=== PATIENT | female | born 1960 | race Caucasian/White ===

== ENCOUNTER 2023-01-28 16:20 | Outpatient (CLI) | payer BC ==
[~2023-01-28 16:20] MED LIST: Iopamidol 300 61% 100 ML VIAL FS ONE
== END 2023-01-28 16:21 | disposition home or self-care (01) ==
LOC: CSHCT 16:20
PROVIDERS: ATTEND Internal Medicine
DX: R10.84 Generalized abdominal pain (principal); Z90.710 Acquired absence of both cervix and uterus; Z90.49 Acquired absence of other specified parts of digestive tract; Z90.81 Acquired absence of spleen
CPT/HCPCS: 74177; 82565; Q9967

== ENCOUNTER 2023-09-02 07:39 | Day surgery (SDC) | payer BC ==
[2023-09-01 11:28] VITALS: BMI 24.3
[2023-09-02] MEDS ORDERED: Lidocaine 1% PF 5 ML VIAL ONE (08:37)
[2023-09-02] MEDS ORDERED: PROPOFOL 40 ML ONE (08:37)
== END 2023-09-02 10:00 | disposition home or self-care (01) ==
LOC: CSHSDC 07:39
PROVIDERS: ATTEND Internal Medicine Gastroenterology
PROC: 0DB68ZX Excision of Stomach, Via Natural or Artificial Opening Endoscopic, Diagnostic (ICD-10-PCS; principal; 2023-09-02)
DX: K29.50 Unspecified chronic gastritis without bleeding (principal); K31.89 Other diseases of stomach and duodenum; K44.9 Diaphragmatic hernia without obstruction or gangrene; E11.9 Type 2 diabetes mellitus without complications; I10 Essential (primary) hypertension; E78.5 Hyperlipidemia, unspecified; Z88.2 Allergy status to sulfonamides; Z88.1 Allergy status to other antibiotic agents; Z90.49 Acquired absence of other specified parts of digestive tract; Z90.710 Acquired absence of both cervix and uterus
CPT/HCPCS: 88305; J2704

== ENCOUNTER 2023-10-07 07:40 | Day surgery (SDC) | payer BC ==
[2023-10-05 13:42] VITALS: BMI 24.3
[2023-10-07] MEDS ORDERED: Lidocaine 2% MPF 10 ML AMP (For Epidural Use) ONE (08:30)
[2023-10-07] MEDS ORDERED: PROPOFOL 60 ML ONE (08:30)
== END 2023-10-07 10:20 | disposition home or self-care (01) ==
LOC: CSHSDC 07:40
PROVIDERS: ATTEND Internal Medicine Gastroenterology
PROC: 0DJD8ZZ Inspection of Lower Intestinal Tract, Via Natural or Artificial Opening Endoscopic (ICD-10-PCS; principal; 2023-10-07)
DX: Z12.11 Encounter for screening for malignant neoplasm of colon (principal); K62.89 Other specified diseases of anus and rectum; K64.8 Other hemorrhoids; I10 Essential (primary) hypertension; E11.9 Type 2 diabetes mellitus without complications; Z86.010 Personal history of colon polyps; Z88.1 Allergy status to other antibiotic agents; Z88.2 Allergy status to sulfonamides
CPT/HCPCS: J2704

== ENCOUNTER 2024-05-04 12:07 | Outpatient (CLI) | payer BC | END 2024-05-04 12:08 | disposition home or self-care (01) | LOC: CSHRAD 12:07 | PROVIDERS: ATTEND Internal Medicine | DX: R07.9 Chest pain, unspecified (principal) | CPT/HCPCS: 71046 ==

== ENCOUNTER 2025-01-17 08:40 | Outpatient (CLI) | payer MEDICARE, OTHER | END 2025-01-17 08:41 | disposition home or self-care (01) | LOC: CSHSLEEP 08:40 | PROVIDERS: ATTEND Internal Medicine | DX: G47.33 Obstructive sleep apnea (adult) (pediatric) (principal); R53.83 Other fatigue; E11.9 Type 2 diabetes mellitus without complications; K21.9 Gastro-esophageal reflux disease without esophagitis; I10 Essential (primary) hypertension | CPT/HCPCS: 95811 ==